=== PATIENT | male | born 1975 | race Caucasian/White ===

== ENCOUNTER → 2017-09-21 20:40 | Outpatient (REF) | payer SELFPAY | LOC: LAB 20:40 | PROVIDERS: Visit Provider Nurse Practitioner Family ==

== ENCOUNTER 2021-01-08 19:49 | Emergency (ER) | payer BC, SELFPAY ==
[2021-01-08 20:11] VITALS: BP 174/95; PULSE 97; RESP 20; TEMP 36.9; O2SAT 97; BMI 24.3
--- NOTE | 2021-01-08 20:32 | HMH.EDALLER ---
ED Disposition Clinical Impression: Tick bite Qualifiers: Encounter type: initial encounter Qualified Code(s): W57.XXXA - Bitten or stung by nonvenomous insect and other nonvenomous arthropods, initial encounter Disposition: Home, Self-Care Condition on Discharge: Good Instructions: Protect Yourself from Tickborne Illnesses Additional Instructions: use meds and see pcp for follow up Prescriptions: Minocycline HCl [Minocycline HCl 100mg Tab*] 100 mg PO BID #28 tab Transmission Status: Pending to [facility] #[id number] Referrals: Jourdan Perez [Primary Care Provider] - - Critical Care Critical Care Time: No Attestation: On 01/08/21, the high probability of a clinically significant, sudden or life threatening deterioration of the following system(s) required my full and direct attention, intervention and personal management. The time I documented below is in addition to time spent performing reported procedures but includes the following listed in this critical care notation. Medical Decision Making - Medical Records Medical records reviewed: Yes: I reviewed the patient's medical records. - Justice Inquiry Pt receiving controlled substance: No Vital Signs: 01/08/21 20:11 Temperature 98.5 F Temperature Source Oral Pulse Rate [Right] 97 H Respiratory Rate 20 Blood Pressure [Right Arm] 174/95 H Blood Pressure Mean [Right Arm] 121 Blood Pressure Source [Right Arm] Automatic Cuff Blood Pressure Position [Right Arm] Sitting 02 Sat by Pulse Oximetry 97 Oxygen Delivery Method Room Air Orders (Tests/Meds): ED MEDICATIONS Discontinued Medications Generic Name Dose Route Start Last Admin Trade Name Freq PRN Reason Stop Dose Admin Doxycycline Hyclate 100 mg 01/08/21 20:31 Doxycycline Hycl 100 Mg Tablet PO 01/08/21 20:32 ONCE ONE Protocol Medical Decision Narrative: known tick bite and now sx - will treat at this time Allergic React/Insect Bite HPI - General Chief complaint: Skin/Abscess/Foreign Body Stated complaint: TICK BITE Time Seen by Provider: 01/08/21 20:20 Mode of Arrival - ED Triage: Ambulatory Source of Information: Patient, Spouse, Medical Record Limitations: No Limitations - History of Present Illness HPI narrative: tick removed wednesday - not sure how long was present and has bite to lt hip and rt hip - now has achey and fever and flu like sx - no other c/o - MD complaint: other (tick bite) Onset (ago): day(s) Exposure: insect bite Treatment prior to arrival: none Allergies/Adverse Reactions: Allergies Allergy/AdvReac Type Severity Reaction Status Date / Time No Known Allergies Allergy Unverified 03/16/18 12:14 Severity: moderate - Related Data Previous Rx's Medication Instructions Recorded Minocycline HCl [Minocycline HCl 100 mg PO BID #28 tab 01/08/21 100mg Tab*] [facility] History - Hepatitis A Screen Drug use history?: No High risk sexual behaviors?: No History of sexually transmitted infection?: No Currently employed?: No Childcare worker?: No Do you have indoor plumbing?: Yes Do you have electricity?: Yes Attestation statement:: This patient has been screened for Hepatitis A risk factors. I have reviewed the patient's past medical history: Yes Medical History: Denies:: Diabetes Mellitus Type 1, Diabetes Mellitus Type 2 Other Medical History: Reports: Other Other Surgeries: Yes: No Previous Surgery - Social History Smoking Status: Never smoker Alcohol Intake: never Occupational Status: employed Housing: house Household Members: family Family Hx:: No significant family history ROS Obtained: Yes All systems reviewed & no additional complaints - Constitutional Constitutional: Reports as per HPI, Reports fever(s), Reports malaise - Eyes Eyes: Denies change in vision - ENT Ears, Nose, Mouth, and Throat: Denies sore throat - Cardiovascular Cardiovascular: Denies chest pain - Respiratory Respiratory:
[2021-01-08 20:46] VITALS: BP 179/100; PULSE 98; RESP 20; TEMP 36.9; O2SAT 99
== END 2021-01-08 20:49 | disposition home or self-care (01) ==
PROVIDERS: Emergency Provider Emergency Medicine; PCP Pediatrics
DX: S70.262A Insect bite (nonvenomous), left hip, initial encounter (principal); S70.261A Insect bite (nonvenomous), right hip, initial encounter; W57.XXXA Bitten or stung by nonvenomous insect and other nonvenomous arthropods, initial encounter
CPT/HCPCS: 99281

== ENCOUNTER 2022-03-13 08:21 | Emergency (ER) | payer BC, SELFPAY ==
[2022-03-13 08:22] VITALS: BP 162/87; PULSE 65; RESP 18; TEMP 36.9; O2SAT 100; BMI 23.6
--- NOTE | 2022-03-13 08:30 | PC.NURSE ---
ED MD AT BEDSIDE FOR EVALUATION
--- NOTE | 2022-03-13 08:39 | PC.NURSE ---
ED MD AT BEDSIDE TO REPAIR LACERATION
--- NOTE | 2022-03-13 09:00 | PC.NURSE ---
LACERATION COVERED WITH GAUZE AND COBAN
--- NOTE | 2022-03-13 09:00 | HMH.EDGENADL ---
Discharge Plan Disposition Patient Disposition: Home, Self-Care Condition: Good Chief Complaint: Wound/Laceration Prescriptions Prescriptions: No Action minocycline 100 MG tablet 100 mg PO BID Qty: 28 0RF Referrals Follow up/Referrals: Jourdan Perez [Primary Care Provider] - See instructions Activity Restrictions/Add. Instructions Additional Instructions/Restrictions: Additional instructions for LACERATION: Clean the wound daily with soap and water. You may shower. Apply a thin film of antibiotic ointment such as neosporin or triple antibiotic after showering and apply a bandage. Avoid submerging the wound, no swimming. See your primary care physician or return to [facility] in 10 days for suture removal. The [facility] is open 8AM to 8PM, 7 days a week. Return if any signs of infection including increasing pain, pus drainage, swelling, redness, red streaks, or fever. Clinical Impressions Clinical Impression: Laceration of right upper arm Discharge ED Provider: Jeffrey Waddell General Adult HPI General Chief complaint: Wound/Laceration Stated complaint: AO [id number] lac to right arm Time Seen by Provider: 03/13/22 08:32 Mode of Arrival: Ambulatory Limitations: No Limitations Description of Symptoms (Recalled from ER Triage Doc. by RN): LACERATION TO BACK OF RIGHT UPPER ARM AT HOME History of Present Illness HPI narrative: Sustained a laceration to the back of his right upper arm on a drywall corner. No numbness or weakness. Last tetanus immunization less than 5 years ago. Injury occurred this morning.. Related Data Previous Rx's Medication Instructions Recorded minocycline 100 mg tablet 100 mg PO BID #28 tabs 01/08/21 Allergies Allergy/AdvReac Type Severity Reaction Status Date / Time No Known Allergies Allergy Unverified 03/16/18 12:14 [facility] Medical History (Updated 03/13/22 @ 09:04 by Jeffrey Waddell MD) Hypertension Family History (Updated 03/13/22 @ 08:44 by Maritza Frye RN) Other No significant family history Social History (Updated 03/13/22 @ 08:45 by Maritza Frye RN) Smoking Status: Never smoker alcohol intake: never current occupational status: employed Travel in the last 8 weeks: None household members: spouse and family housing: house marital status: ROS Obtained: Yes Systems reviewed as appropriate & no additional complaints except as documented Constitutional Constitutional: Denies weakness Musculoskeletal Musculoskeletal: Denies numbness Integumentary/Breasts Skin/Breast: Reports wounds Neurologic Neurologic: Denies focal weakness, Denies numbness and Denies weakness Physical Exam General General appearance: alert and in no apparent distress Head Head exam: atraumatic and normocephalic Chest Chest inspection: Present symmetric chest wall rise Respiratory Respiratory exam: Absent respiratory distress Cardiovascular Cardiovascular exam: Present regular rate Expanded Upper Extremity Exam Right: Comment: 4 cm laceration transversely across the posterior aspect of the right upper arm distal one third. Extends into subcutaneous fat. No deep structure injury, foreign bodies, contamination. Full range of motion. Neurovascular status intact. Neurological Exam Neurological exam: Present alert and oriented X3; Absent motor sensory deficit Psychiatric Psychiatric exam: Present normal affect and normal mood Skin Skin exam: Present warm and dry Medical Decision Making Justice Inquiry Pt receiving controlled substance: No Vital Signs: 03/13/22 08:22 Temperature 98.4 F Temperature Source Oral Pulse Rate [Radial] 65 Respiratory Rate 18 Blood Pressure [Left Arm] 162/87 H Blood Pressure Mean [Left Arm] 112 Blood Pressure Source [Left Arm] Automatic Cuff Blood Pressure Position [Left Arm] Sitting 02 Sat by Pulse Oximetry 100 Oxygen Delivery Method Room Air Orders (T
[2022-03-13 09:12] VITALS: BP 163/84; PULSE 53; RESP 16; TEMP 36.9; O2SAT 97
== END 2022-03-13 09:12 | disposition home or self-care (01) ==
PROVIDERS: Emergency Provider Emergency Medicine; PCP Pediatrics
DX: S41.111A Laceration without foreign body of right upper arm, initial encounter (principal)
CPT/HCPCS: 99282

== ENCOUNTER 2022-12-14 11:28 | Emergency (ER) | payer OTHER, SELFPAY ==
--- NOTE | 2022-12-14 11:34 | XR_ITS ---
FINAL REPORT CLINICAL HISTORY: SMASHED PINKY FINGER COMPARISON: None FINDINGS: 3 views of the right hand were obtained. There is no prior exam for comparison. There is no acute fracture or dislocation. There is mild multijoint degenerative disease. The soft tissues are normal. IMPRESSION: No acute osseous abnormality of the right hand. Reviewed, Interpreted and Dictated by Sammi Mansfield MD Transcribed by Virgen Gutierrez Authenticated and [facility]
[2022-12-14 11:35] VITALS: BP 161/95; PULSE 84; RESP 20; TEMP 36.7; O2SAT 98; BMI 25.4
--- NOTE | 2022-12-14 11:58 | EXP.UTC ---
Discharge Plan Disposition Patient Disposition: Home, Self-Care Condition: Good Referrals Follow up/Referrals: Jourdan Perez [Primary Care Provider] - See instructions Activity Restrictions/Add. Instructions Additional Instructions/Restrictions: Suture instructions: ?You have required stitches today. Please read the following instructions so you know how to care for them: ?1. Keep wound area dry for the first 24 hours. 2?? May clean gently with mild soap and water, after 48 hours to prevent crusting over suture knots. 3. You may shower if your provider gives permission but do not take a bath until the skin is healed.. 4. Never leave a wet dressing or Band-Aid on your stitches as this allows bacteria to reach the area and may cause infection. Band-aids can cause the wound to sweat and not recommended to wear for long periods of time Watch for signs of infection: ? Increasing redness, tenderness or warmth around the suture site ? Unusual swelling around the site ? Appearance of pus around each suture or any red streaks ? Fever If you develop any of the above signs or symptoms of infection, Follow up with Family Physician immediately 5. Suture removal in _7-10___days 6. Return to [facility] or follow up with family doctor for removal. This can be done by any medical provider dur?ing regular hours on Wednesday through Wednesday, by appointment. Clinical Impressions Clinical Impression: Laceration Instructions Patient Instructions: DI for Laceration Repair, DI for Laceration Repair -- Finger Discharge ED Provider: Silvia Sawyer [facility] [place] HPI General Stated complaint: AO@Home 12/14 RT pinky finger pain Mode of Arrival: Ambulatory Source of Information: Patient Limitations: No Limitations Time Seen by Provider: 12/14/22 11:58 Description of Symptoms (Recalled from Triage Doc. 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 HEENT Symptoms (Recalled from RN notes): No Resp Symptoms (Recalled from RN notes): No Skin Symptoms (Recalled from RN notes): Yes MS Symptoms (Recalled from RN notes): No Functional Status (Recalled from RN notes): WNL History of Present Illness Provider Complaint: Patient states that he dropped a board on his right hand and caused laceration to his little finger able to move and bend finger easily Denies loss of sensation reports Tdap up to date Related Data Allergies Allergy/AdvReac Type Severity Reaction Status Date / Time No Known Allergies Allergy Unverified 03/16/18 12:14 Worker's Comp Is this a Worker's Comp case?: No [facility] Disclaimer: The information contained in this section may have been updated after the patient was seen, as this information can be updated by other users. Medical History (Updated 12/14/22 @ 12:03 by Silvia Sawyer APRN) Hypertension Family History (Updated 03/13/22 @ 08:44 by Maritza Frye RN) Other No significant family history Social History (Updated 03/13/22 @ 08:45 by Maritza Frye RN) Smoking Status: Never smoker alcohol intake: never current occupational status: employed Travel in the last 8 weeks: None household members: spouse and family housing: house marital status: ROS Obtained: Yes All systems reviewed & no additional complaints except as documented and Yes Systems reviewed as appropriate & no additional complaints except as documented Constitutional Constitutional: Reports system reviewed and no additional complaints, except as documented and Reports as per HPI ENT Ears, Nose, Mouth, and Throat: Reports system reviewed and no additional complaints, except as documented and Reports as per HPI Cardiovascular Cardiovascular: Reports system reviewed and no additional complaints, except as documented and Reports as per HPI Respiratory Respiratory: Reports system reviewed and no additional complaints, except as documented and Reports as per HPI Gastrointestinal Gastrointestingal: R
[2022-12-14 12:18] VITALS: BP 161/95; PULSE 84; RESP 20; TEMP 36.7; O2SAT 98
== END 2022-12-14 12:25 | disposition home or self-care (01) ==
PROVIDERS: Emergency Provider Nurse Practitioner; PCP Pediatrics
DX: S61.216A Laceration without foreign body of right little finger without damage to nail, initial encounter (principal); W20.8XXA Other cause of strike by thrown, projected or falling object, initial encounter; I10 Essential (primary) hypertension
CPT/HCPCS: 12001; 73130; 99204; 99213; G0463

== ENCOUNTER 2024-02-22 16:00 | Outpatient (POV) | payer OTHER, SELFPAY | END 2024-02-22 23:59 | disposition home or self-care (01) | LOC: SC 16:01 | PROVIDERS: PCP Pediatrics; Visit Provider Dermatology | DX: Z00.00 Encounter for general adult medical examination without abnormal findings (principal) ==

== ENCOUNTER 2024-10-31 12:31 | Outpatient (CLI) | payer OTHER, SELFPAY ==
--- NOTE | 2024-10-31 12:40 | XR_ITS ---
FINAL REPORT CLINICAL HISTORY: ACUTE PAIN LT SHOULDER COMPARISON: None FINDINGS: LEFT SHOULDER Three views of the left shoulder were obtained. There is no acute fracture or dislocation. There are mild hypertrophic changes at the acromioclavicular joint. Soft tissues are unremarkable. IMPRESSION: Degenerative changes without acute bony abnormality. Reviewed, Interpreted and Dictated by Toby Germain MD Transcribed by Christine Guan Authenticated and [facility]
== END 2024-10-31 23:59 | disposition home or self-care (01) ==
LOC: RAD 12:34
PROVIDERS: PCP Nurse Practitioner Family; Visit Provider Nurse Practitioner Family
DX: M25.512 Pain in left shoulder (principal)
CPT/HCPCS: 73030

== ENCOUNTER 2025-04-24 14:28 | Outpatient (CLI) | payer OTHER, SELFPAY ==
--- NOTE | 2025-04-24 14:31 | MR_ITS ---
FINAL REPORT TECHNIQUE: Multiplanar and multisequence imaging of the left shoulder was obtained without contrast. CLINICAL HISTORY: SHOULDER PAIN to elbow x 6 months no injury FINDINGS: Bones and joints: There is no acute fracture, edema, or pathologic marrow replacement. Acromioclavicular joint degenerative disease is present and there is osteophytosis which narrows the supraspinatus outlet. There is also mild degenerative joint disease of the glenohumeral joint. Rotator cuff: There is rotator cuff tendinopathy. The supraspinatus tendon is intact. The infraspinatus tendon is intact. No subscapularis tendon tear. There is no fatty atrophy of the rotator cuff muscles. Labrum: The biceps labral complex is intact. There is a SLAP type II tear of the superior labrum. Remaining labrum is intact The inferior glenohumeral ligament is intact. The biceps tendon is intact. No biceps tendon tear is identified. There is fluid in the biceps tendon sheath, greater than expected for degree of joint fluid consistent with tenosynovitis. Other: There is a small significant joint effusion. Remaining soft tissues are within normal limits. IMPRESSION: No full-thickness rotator cuff tear. SLAP type II tear of the superior labrum. Biceps tenosynovitis. Degenerative joint disease. Reviewed, Interpreted and Dictated by Sammi Mansfield MD Transcribed by Rylee Maya Authenticated and [facility]
== END 2025-04-24 23:59 | disposition home or self-care (01) ==
LOC: RAD 14:29
PROVIDERS: PCP Nurse Practitioner Family; Visit Provider Nurse Practitioner Family
DX: S43.432A Superior glenoid labrum lesion of left shoulder, initial encounter (principal); M75.22 Bicipital tendinitis, left shoulder; M19.012 Primary osteoarthritis, left shoulder
CPT/HCPCS: 73221